=== PATIENT | male | born 1960 | race Caucasian/White ===

== ENCOUNTER 2018-01-21 06:33 | Observation (INO) | payer OTHER ==
[2018-01-21] MEDS ORDERED: Aspirin 81 MG Tab.Chew PO ONE (07:01)
--- NOTE | 2018-01-21 07:07 | EDM.PDOC ---
<Mykel Stuart - Last Filed: 01/21/18 06:59> ED HPI GENERAL MEDICAL PROBLEM - General Chief Complaint: Chest Pain Stated Complaint: CHEST PAIN Time Seen by Provider: 01/21/18 06:39 - History of Present Illness INITIAL COMMENTS - FREE TEXT/NARRATIVE: 57-year-old male presents emergency room with chest pain. This pain started 2-3 days ago. Pain seems to be left-sided and substernal he does not have associated radiating pain into his jaw or arm or elsewhere. The pain is not associated with any shortness of breath nausea vomiting or back pain. The patient has a significant past history of coronary artery disease he had stent placement he says of 3 vessels in 2010. The patient is currently taking some for blood pressure he believes is on Plavix and possibly some for his lipids. The patient is currently working in the [employer] and can't be certain that the activities make the pain worse however he has an area in his left chest is tender to the touch according to the patient. Chest Pain Score (Numeric/FACES): 7 - Related Data Allergies Allergy/AdvReac Type Severity Reaction Status Date / Time No Known Allergies Allergy Verified 01/21/18 06:44 Home Meds: Home Meds Aspirin [Halfprin] 81 mg PO DAILY 01/21/18 [History] Blood Pressure Meds. 01/21/18 [History] Blood Thinner. 01/21/18 [History] Past Medical History Cardiovascular History: Reports: High Cholesterol, Hypertension, NH - Past Surgical History Cardiovascular Surgical History: Reports: Coronary Artery Stent Musculoskeletal Surgical History: Reports: Other (See Below) Other Musculoskeletal Surgeries/Procedures:: finger amputation ED ROS GENERAL - Review of Systems Review Of Systems: See Below Constitutional: Reports: No Symptoms HEENT: Reports: No Symptoms Respiratory: Reports: No Symptoms Cardiovascular: Reports: Chest Pain. Denies: Dyspnea on Exertion, Edema, Palpitations Endocrine: Reports: No Symptoms GI/Abdominal: Reports: No Symptoms : Reports: No Symptoms Musculoskeletal: Reports: No Symptoms Skin: Reports: No Symptoms Neurological: Reports: No Symptoms Psychiatric: Reports: No Symptoms Hematologic/Lymphatic: Reports: No Symptoms Immunologic: Reports: No Symptoms ED EXAM, GENERAL - Physical Exam Exam: See Below Exam Limited By: No Limitations General Appearance: Alert, No Apparent Distress, Other (Patient states his pain is it an 8 but he seems to be doing pretty well) Eye Exam: Bilateral Eye: Normal Inspection Nose: Normal Inspection, Normal Mucosa, No Blood Throat/Mouth: Normal Inspection, Normal Gums, Normal Oropharynx, Normal Voice, No Airway Compromise Head: Atraumatic, Normocephalic Neck: Normal Inspection, Supple, Non-Tender, Full Range of Motion. No: Lymphadenopathy (L), Lymphadenopathy (R) Respiratory/Chest: No Respiratory Distress, Lungs Clear, Normal Breath Sounds, Other (He has some palpatory chest wall discomfort just the left side of the sternum. The patient believes this is similar to the pain he's been having but is not completely certain). No: Chest Non-Tender Cardiovascular: Normal Peripheral Pulses, Regular Rate, Rhythm, No Edema GI/Abdominal: Normal Bowel Sounds, Soft, Non-Tender Back Exam: Normal Inspection. No: CVA Tenderness (L), CVA Tenderness (R) Extremities: Normal Inspection, No Pedal Edema Neurological: Alert, Oriented, Normal Cognition EKG INTERPRETATION EKG Date: 01/21/18 Rhythm: NSR Pegram: Normal P-Wave: Present ST-T: Normal QT: Normal Comparison: NA - No Prior EKG EKG Interpretation Comments: Abnormal Course - Vital Signs Last Recorded V/S: Last Vital Signs Temp 36.9 C 01/21/18 06:41 Pulse 65 01/21/18 06:41 Resp 18 01/21/18 06:41 BP 129/82 01/21/18 07:23 Pulse Ox 99 01/21/18 06:41 - Orders/Labs/Meds Orders: Active Orders 24 hr Category Date Time Status EKG Documentation Completion [RC] ASDIRECTED Care 01/21/18 06:50 Active Chest 1V Frontal [CR] Stat Exams 01/21/18 06:49 Taken EKG 12 Lead [EK] Stat Ther 01/21/18 06:49 Ordered Labs: Laboratory Tests 01/21/18 01/21/18 01/21/18 Range/Units 07:05 07:05 07:05 WBC 5.93 (4.23-9.07) K/mm3 RBC 4.80 (4.63-6.08) M/mm3 Hgb 14.7 (13.7-17.5) gm/L Hct 43.2 (40.1-51.0) % MCV 90.0 (79.0-92.2) fl MCH 30.6 (25.7-32.2) pg MCHC 34.0 (32.2-35.5) g/dl RDW Std Deviation 45.8 H (35.1-43.9) fL Plt Count 322 (163-337) K/mm3 MPV 9.9 (9.4-12.3) fl Neutrophils % (Manual) 64 H (40-60) % Band Neutrophils % 0 (0-10) % Lymphocytes % (Manual) 33 (20-40) % Monocytes % (Manual) 1 L (2-10) % Eosinophils % (Manual) 1 (0.8-7.0) % Basophils % (Manual) 1 (0.2-1.2) Platelet Estimate Adequate RBC Morph Comment Normal PT 10.8 (8.0-13.0) SECONDS INR 1.01 APTT 30 (22-36) SECONDS Sodium 138 (136-145) mEq/L Potassium 3.7 (3.5-5.1) mEq/L Chloride 106 (98-107) mEq/L Carbon Dioxide 24 (21-32) mEq/L Anion Gap 11.7 (5-15) BUN 19 H (7-18) mg/dL Creatinine 0.8 (0.7-1.3) mg/dL Est Cr Clr Drug Dosing 113.75 mL/min Estimated GFR (MDRD) > 60 (>60) mL/min BUN/Creatinine Ratio 23.8 H (14-18) Glucose 143 H (74-106) mg/dL Calcium 8.9 (8.5-10.1) mg/dL Total Bilirubin 0.4 (0.2-1.0) mg/dL AST 26 (15-37) U/L ALT 41 (16-63) U/L Alkaline Phosphatase 112 (46-116) U/L Troponin I < 0.017 (0.00-0.056) ng/mL Total Protein 6.3 L (6.4-8.2) g/dl Albumin 3.6 (3.4-5.0) g/dl Globulin 2.7 gm/dL Albumin/Globulin Ratio 1.3 (1-2) Meds: Medications Discontinued Medications Generic Name Dose Route Start Last Admin Trade Name Freq PRN Reason Stop Dose Admin Aspirin 324 mg 01/21/18 07:01 01/21/18 07:14 Aspirin PO 01/21/18 07:02 324 mg ONETIME ONE Administration Nitroglycerin 0.4 mg 01/21/18 07:01 01/21/18 07:23 Nitrostat SL 0.4 mg Q5M PRN Administration Chest Pain - Re-Assessments/Exams Free Text/Narrative Re-Assessment/Exam: 01/21/18 07:17 Change of shift further evaluation and disposition per Dr. Cid Departure - Departure Disposition: Refer to Observation Clinical Impression: Angina pectoris, Hyperglycemia <Bhupinder Cid - Last Filed: 01/21/18 08:57> Course - Re-Assessments/Exams Free Text/Narrative Re-Assessment/Exam: 01/21/18 07:[address] Stuart. Notified by Sosa GÓMEZ that the nitroglycerin is helping with the patient's chest pain. 01/21/18 07:51 Portable chest radiograph appears to be grossly normal. Cardiac silhouette is within normal limits. No pulmonary vascular congestion. No pleural effusions. No focal infiltrate. No pneumothorax. Formal read per the Radiologist pending. 01/21/18 08:40 Test results discussed with the patient. Today's workup is unremarkable (with the exception of a blood glucose elevated 143). I discussed his current chest pain. He tells me that it is very similar to what he experienced in October 2011, when he suffered a NH. The patient tells me that he restarted smoking about 3 months ago, one pack per day, and that he also had worse chest pain when he smoked. 01/21/18 08:[address] Wells, [employer] Received at [facility], at 08:42. She does not feel that the patient needs to be transferred. She is recommending that we admit the patient to the hospital to follow troponins. She recommends we start the patient on Imdur 30 mg daily, and allow the patient to continue nitroglycerin on an as-needed basis. He should continue his aspirin. He should be referred to Cardiology as an outpatient, at which time he should bring his medication bottles so that the names and doses of his current medications can be known. 01/21/18 08:[address] Trotter at 08:52. He accepts the patient for placement into observation. Departure - Departure Time of Disposition: 08:54 Condition: Fair
[2018-01-21] MEDS: Nitroglycerin 0.4 MG Tab.SL SL PRN ×5 (07:13→18:16)
--- NOTE | 2018-01-21 08:48 | CR ---
Chest: Portable view of the chest was obtained. Comparison: No prior study. Heart size is normal. Tortuous thoracic aorta is seen. Lungs are clear. Bony structures are grossly intact. Impression: 1. Nothing acute is seen on portable chest x-ray. Diagnostic code #1
--- NOTE | 2018-01-21 09:29 | PCM.HP ---
H&P History of Present Illness - General Date of Service: 01/21/18 Admit Problem/Dx: Chest Pain Source of Information: Patient, Provider, RN, RN Notes Reviewed History Limitations: Reports: No Limitations - History of Present Illness Initial Comments - Free Text/Narative: Jony Espinoza is a 57 yo male who presents to our ED today (01/21/18) with chest pain that started 2-3 days ago. hHrd. He's currently taking ASA, Lipitor , and carvedilol. He is currently in the area working on [employer] and is not certain if the activity makes the pain worse or better. Reports his left chest is tender to touch. He reports he normally resides in [place] and is up here for work. Patient reports the pain is similar to his last heart attack in October 2011. She was reportedly a heavy smoker and stopped after his last heart attack. He resumed smoking about 3 days ago, 1/2 pack a day. He reports his chest pain is worse when he smokes. In the ED temp was 36.9C. Pulse 65. Respirations 18. BP 129/82. Pulse ox 99 %. 12-lead EKG was obtained shows a sinus rhythm with no ST changes. A first degree heart block is noted. observe obtained: W she is normal at 5.93. Hemoglobin 14.7. Hematocrit 43.2. He is normocytic. Platelets are normal at 322,000. Neutrophils are elevated at 64%. There is no bandemia. PT is 10.8. INR 1.01. APTT is 30. Sodium is 138. Potassium 3.7. Chloride 106. Comvax at 24. Anion gap 11.7. BUN is high at 19. Creatinine 0.8. EGFR greater than 60. Glucose high at 143. Calcium 8.9. Total bilirubin 0.4. Liver enzymes looked good with AST at 26, ALT of 41, alkaline phosphatase at 112. Troponin is negative at less than 0.017. Protein is slightly low at 6.3. Albumin 3.6. He is given 324 mg of aspirin and 0.4 mg sublingual nitroglycerin. nothing acute was appreciated on portable chest x-ray. Dr. Wells, superintendent service was stays in [place] was contacted at [phone]. She reports that the patient does not need to be transported to [place] and feels he should be started on Imdur 30 mg daily and continue nitroglycerin as needed. He should also continue his aspirin. He can be referred to cardiology as outpatient. She also recommends admission to the hospital for serial troponins. He carries a history of: HLD, HTN, CAD with stent placed in October 2011. He is a current half pack a day smoker. He subsequently is admitted to the medical floor under observation with telemetry. He is a full code. He does not have a PCP locally. Chest Pain Score (Numeric/FACES): 7 - Related Data Allergies/Adverse Reactions: Allergies Allergy/AdvReac Type Severity Reaction Status Date / Time No Known Allergies Allergy Verified 01/21/18 06:44 Home Medications: Home Meds Aspirin [Halfprin] 81 mg PO DAILY 01/21/18 [History] Carvedilol 6.25 mg PO BID 01/21/18 [History] atorvaSTATin [Lipitor] 80 mg PO DAILY 01/21/18 [History] Past Medical History Cardiovascular History: Reports: High Cholesterol, Hypertension, OR - Past Surgical History Cardiovascular Surgical History: Reports: Coronary Artery Stent Musculoskeletal Surgical History: Reports: Other (See Below) Other Musculoskeletal Surgeries/Procedures:: finger amputation Social & Family History - Tobacco Use Smoking Status *Q: Current Every Day Smoker Years of Tobacco use: 40 Packs/Tins Daily: 1 - Caffeine Use Caffeine Use: Reports: Coffee - Recreational Drug Use Recreational Drug Use: No H&P Review of Systems - Review of Systems: Review Of Systems: See Below General: Reports: No Symptoms. Denies: Fever, Chills, Malaise, Weakness, Fatigue HEENT: Reports: No Symptoms. Denies: Glasses, Sinus Congestion, Sore Throat Pulmonary: Reports: No Symptoms. Denies: Shortness of Breath, Wheezing, Cough, Sputum Cardiovascular: Reports: Chest Pain, Blood Pressure Problem. Denies: Palpitations, Dyspnea on Exertion, Edema, Lightheadedness, Syncope, Claudication Gastrointestinal: Reports: No Symptoms. Denies: Abdominal Pain, Constipation, Diarrhea, Decreased Appetite, Hematemesis, Hematochezia, Melena, Nausea, Vomiting Genitourinary: Reports: No Symptoms. Denies: Dysuria, Frequency, Burning, Pain , Urgency Musculoskeletal: Reports: No Symptoms Skin: Reports: No Symptoms Psychiatric: Reports: No Symptoms Neurological: Reports: No Symptoms Hematologic/Lymphatic: Reports: No Symptoms Immunologic: Reports: No Symptoms Exam - Exam Exam: See Below - Vital Signs Vital Signs: Last Vital Signs Temp 98.5 F 01/21/18 06:41 Pulse 65 01/21/18 06:41 Resp 18 01/21/18 06:41 BP 129/82 01/21/18 07:23 Pulse Ox 99 01/21/18 06:41 Weight: 240 lb - Exam Quality Assessment: DVT Prophylaxis General: Alert, Oriented, Cooperative. No: Mild Distress HEENT: PERRLA, Hearing Intact, Mucosa Moist & [place], Nares Patent, Normal Nasal Septum, Posterior Pharynx Clear, Conjunctiva Clear, EOMI, EACs Clear, TMs Clear Neck: Supple, Trachea Midline. No: JVD, Thyromegaly Lungs: Clear to Auscultation, Normal Respiratory Effort Cardiovascular: Regular Rate, Regular Rhythm, Bradycardia GI/Abdominal Exam: Normal Bowel Sounds, Soft, Non-Tender, No Organomegaly, No Distention, No Abnormal Bruit, No Mass, Pelvis Stable (Male) Exam: Deferred Rectal (Males) Exam: Deferred Back Exam: Normal Inspection, Full Range of Motion Extremities: Normal Inspection, Normal Range of Motion, Non-Tender, No Pedal Edema, Normal Capillary Refill Peripheral Pulses: 2+: Radial (L), Radial (R), Posterior Tibial (L), Posterior Tibial (R), Dorsalis Pedis (L), Dorsalis Pedis (R) Skin: Warm, Dry, Intact Neurological: Cranial Nerves Intact (grossly ) Neuro Extensive - Mental Status: Alert, Oriented x3, Normal Mood/Affect, Normal Cognition, Memory Intact Psychiatric: Alert, Normal Affect, Normal Mood - Patient Data Lab Results Last 24 hrs: Laboratory Results - last 24 hr 01/21/18 01/21/18 01/21/18 Range/Units 07:05 07:05 07:05 WBC 5.93 (4.23-9.07) K/mm3 RBC 4.80 (4.63-6.08) M/mm3 Hgb 14.7 (13.7-17.5) gm/L Hct 43.2 (40.1-51.0) % MCV 90.0 (79.0-92.2) fl MCH 30.6 (25.7-32.2) pg MCHC 34.0 (32.2-35.5) g/dl RDW Std Deviation 45.8 H (35.1-43.9) fL Plt Count 322 (163-337) K/mm3 MPV 9.9 (9.4-12.3) fl Neutrophils % (Manual) 64 H (40-60) % Band Neutrophils % 0 (0-10) % Lymphocytes % (Manual) 33 (20-40) % Monocytes % (Manual) 1 L (2-10) % Eosinophils % (Manual) 1 (0.8-7.0) % Basophils % (Manual) 1 (0.2-1.2) Platelet Estimate Adequate RBC Morph Comment Normal PT 10.8 (8.0-13.0) SECONDS INR 1.01 APTT 30 (22-36) SECONDS Sodium 138 (136-145) mEq/L Potassium 3.7 (3.5-5.1) mEq/L Chloride 106 (98-107) mEq/L Carbon Dioxide 24 (21-32) mEq/L Anion Gap 11.7 (5-15) BUN 19 H (7-18) mg/dL Creatinine 0.8 (0.7-1.3) mg/dL Est Cr Clr Drug Dosing 113.75 mL/min Estimated GFR (MDRD) > 60 (>60) mL/min BUN/Creatinine Ratio 23.8 H (14-18) Glucose 143 H (74-106) mg/dL Calcium 8.9 (8.5-10.1) mg/dL Total Bilirubin 0.4 (0.2-1.0) mg/dL AST 26 (15-37) U/L ALT 41 (16-63) U/L Alkaline Phosphatase 112 (46-116) U/L Troponin I < 0.017 (0.00-0.056) ng/mL Total Protein 6.3 L (6.4-8.2) g/dl Albumin 3.6 (3.4-5.0) g/dl Globulin 2.7 gm/dL Albumin/Globulin Ratio 1.3 (1-2) Result Diagrams: 01/21/18 07:05 01/21/18 07:05 *Q Meaningful Use (ADM) - VTE *Q VTE Criteria *Q: - Stroke *Q Stroke Criteria *Q: - AMI *Q AMI Criteria *Q: - Problem List (1) Angina pectoris SNOMED Code(s): 337874446 ICD Code: I20.9 - ANGINA PECTORIS, UNSPECIFIED Status: Acute Priority: High Current Visit: Yes (2) HLD (hyperlipidemia) SNOMED Code(s): 47414268 ICD Code: E78.5 - HYPERLIPIDEMIA, UNSPECIFIED Status: Chronic Priority: Low Current Visit: No Qualifiers: Hyperlipidemia type: unspecified Qualified Code(s): E78.5 - Hyperlipidemia , unspecified (3) HTN (hypertension) SNOMED Code(s): 49330702 ICD Code: I10 - ESSENTIAL (PRIMARY) HYPERTENSION Status: Chronic Priority : Low Current Visit: No Qualifiers: Hypertension type: unspecified Qualified Code(s): I10 - Essential (primary ) hypertension (4) CAD (coronary artery disease) SNOMED Code(s): 03879156 ICD Code: I25.10 - ATHSCL HEART DISEASE OF [place] CORONARY ARTERY W/O ANG PCTRS Status: Chronic Priority: High Current Visit: Yes Qualifiers: Coronary Disease-Associated Artery/Lesion type: [place] artery [place] vs. transplanted heart: [place] heart Associated angina: angina presence unspecified Qualified Code(s): I25.10 - Atherosclerotic heart disease of [place] coronary artery without angina pectoris (5) Tobacco use disorder SNOMED Code(s): 345682474 ICD Code: F17.200 - NICOTINE DEPENDENCE, UNSPECIFIED, UNCOMPLICATED Status : Chronic Priority: Medium Current Visit: Yes Problem List Initiated/Reviewed/Updated: Yes Orders Last 24hrs: Active Orders 24 hr Category Date Time Status EKG Documentation Completion [RC] ASDIRECTED Care 01/21/18 06:50 Active EKG 12 Lead [EK] Stat Ther 01/21/18 06:49 Ordered Assessment/Plan Comment:: I/P: Acute: Chest pain -Denies SOB, neck or arm pain, arm numbness, hand tingling, back pain, diaphoresis, nausea, vomiting -Risk Factors: HLD, HTN, hx/o CAD with stent placement in October 2011, daily smoker -Constant and dull substernal and slightly to left side pain -"Fells like it did the last time I had my heart attack" -Started 2-3 days ago -12-lead in ED- sinus rhythm, 1st degree HB, No ST changes -Troponin <0.017 -ASA, SL nitro given in ED -Stress test in AM -NPO after midnight -Stop nitro at midnight -No caffeine -No metoprolol/BB, hold meds until after test -Repeat Troponins <0.017 -CKMB 5.4 -Telemetry Chronic: HLD - home Lipitor after stress test HTN - Carvedilol - hold till after stress test CAD with stent placed in October 2011 Plan: Admit to medical floor observation with telemetry CM for discharge planning Pt. is ambulatory so no Pt/OT now Routine AM labs Other orders as indicated above Home meds as ordered DVT prophylaxis: SCDs and ambulate Code status: Full code; PCP: none in area.
[2018-01-21] MEDS ORDERED: LORazepam 2 MG/ML MDV IV PRN (09:38)
[2018-01-21] MEDS ORDERED: Temazepam 15 MG Cap PO PRN (09:38)
[2018-01-21] MEDS ORDERED: Acetaminophen 325 MG Tab PO PRN (09:38)
[2018-01-21] MEDS ORDERED: Promethazine 12.5 MG in Sodium Chloride 0.9% 50 ML IV PRN (09:38)
[2018-01-21] MEDS ORDERED: Ondansetron 4 MG/2 ML SDV IV PRN (09:38)
[2018-01-21] MEDS ORDERED: Acetaminophen/HYDROcodone 325-5 MG Tab PO PRN (09:38)
[2018-01-21] MEDS ORDERED: Bisacodyl 5 MG Tab PO PRN (09:38)
[2018-01-21] MEDS ORDERED: Albuterol/Ipratropium 3.0-0.5 MG/3 ML Neb Soln NEB PRN (09:38)
[2018-01-21] MEDS ORDERED: Polyethylene Glycol 3350 Powder 17 GM Packet PO PRN (09:38)
[2018-01-21] MEDS ORDERED: Docusate Sodium 100 MG Cap PO PRN (09:38)
[2018-01-21] MEDS ORDERED: Metoprolol Tartrate 5 MG/5 ML SDV IVPUSH PRN (09:44)
[2018-01-21] MEDS ORDERED: LORazepam 2 MG/ML MDV IVPUSH PRN (09:44)
[2018-01-21] MEDS ORDERED: hydrALAZINE 20 MG/ML SDV IVPUSH PRN (09:44)
[2018-01-21] MEDS ORDERED: Morphine 2 MG/ML Syringe ONE (09:53)
[2018-01-21] MEDS: Morphine 2 MG/ML Syringe IVPUSH PRN ×3 (09:53→21:44)
[2018-01-21] MEDS ORDERED: Benzocaine/Cetylpyridinium/Menthol Lozenge MUCMEM PRN (15:46)
[2018-01-21] MEDS ORDERED: Pneumococcal Polyvalent-23 Vaccine 0.5 ML SDV IM ONE (18:13)
[2018-01-21] MEDS ORDERED: FLU Vacc QS 2017-18 (6mos UP)/PF 60 MCG/0.5 ML Syringe IM ONE (18:30)
[2018-01-22] MEDS: Morphine 2 MG/ML Syringe IVPUSH PRN (04:37)
[2018-01-22] MEDS ORDERED: Magnesium Oxide 400 MG Tab PO ONE (09:00)
[2018-01-22] MEDS ORDERED: Aspirin 81 MG Tab.EC PO SCH ×2 (09:00)
[2018-01-22] MEDS ORDERED: Aspirin 81 MG Tab.Chew PO SCH (09:00)
--- NOTE | 2018-01-22 13:18 | NM ---
Cardiolite cardiac scan I have data stating the patient was stressed utilizing treadmill protocol. Patient reached 142 beats per minute which is above the patient's 85% maximum predicted heart rate of 138 beats per minute. Stress dose of technetium 99m Cardiolite was 10.1 mCi. Rest dose was 29.9 mCi. SPECT imaging was obtained in 3 planes for both portions of the study. Study was also gated. Low-dose chest CT performed to allow for attenuation correction. Comparison: No prior cardiac imaging Findings: Activity is fairly homogeneous between rest and stress study. No fixed or reversible type defects are seen. Ejection fraction is 53%. Wall thickening and wall motion are within normal limits. Impression: 1. No abnormality is appreciated on Cardiolite portion of cardiac stress test. Diagnostic code #1
--- NOTE | 2018-01-22 13:39 | PCM.DCSUM1 ---
Discharge Summary - Hospital Course HPI Initial Comments: Jony Espinoza is a 57 yo male who presents to our ED today (01/21/18) with chest pain that started 2-3 days ago. hHrd. He's currently taking ASA, Lipitor , and carvedilol. He is currently in the area working on oil rigs and is not certain if the activity makes the pain worse or better. Reports his left chest is tender to touch. He reports he normally resides in [place] and is up here for work. Patient reports the pain is similar to his last heart attack in October 2011. She was reportedly a heavy smoker and stopped after his last heart attack. He resumed smoking about 3 days ago, 1/2 pack a day. He reports his chest pain is worse when he smokes. In the ED temp was 36.9C. Pulse 65. Respirations 18. BP 129/82. Pulse ox 99 %. 12-lead EKG was obtained shows a sinus rhythm with no ST changes. A first degree heart block is noted. observe obtained: W she is normal at 5.93. Hemoglobin 14.7. Hematocrit 43.2. He is normocytic. Platelets are normal at 322,000. Neutrophils are elevated at 64%. There is no bandemia. PT is 10.8. INR 1.01. APTT is 30. Sodium is 138. Potassium 3.7. Chloride 106. Comvax at 24. Anion gap 11.7. BUN is high at 19. Creatinine 0.8. EGFR greater than 60. Glucose high at 143. Calcium 8.9. Total bilirubin 0.4. Liver enzymes looked good with AST at 26, ALT of 41, alkaline phosphatase at 112. Troponin is negative at less than 0.017. Protein is slightly low at 6.3. Albumin 3.6. He is given 324 mg of aspirin and 0.4 mg sublingual nitroglycerin. nothing acute was appreciated on portable chest x-ray. Dr. Wells, cash sales audit clerk was stays in [place] was contacted at [phone]. She reports that the patient does not need to be transported to [place] and feels he should be started on Imdur 30 mg daily and continue nitroglycerin as needed. He should also continue his aspirin. He can be referred to cardiology as outpatient. She also recommends admission to the hospital for serial troponins. He carries a history of: HLD, HTN, CAD with stent placed in October 2011. He is a current half pack a day smoker. He subsequently is admitted to the medical floor under observation with telemetry. He is a full code. He does not have a PCP locally. - Discharge Data Discharge Date: 01/22/18 (Admit date: 01/21/18) Discharge Disposition: Home, Self-Care 01 Condition: Good - Discharge Diagnosis/Problem(s) (1) Angina pectoris SNOMED Code(s): 507779992 ICD Code: I20.9 - ANGINA PECTORIS, UNSPECIFIED Status: Resolved Priority : High Current Visit: Yes (2) HLD (hyperlipidemia) SNOMED Code(s): 68963199 ICD Code: E78.5 - HYPERLIPIDEMIA, UNSPECIFIED Status: Chronic Priority: Low Current Visit: No Qualifiers: Hyperlipidemia type: unspecified Qualified Code(s): E78.5 - Hyperlipidemia , unspecified (3) HTN (hypertension) SNOMED Code(s): 50087738 ICD Code: I10 - ESSENTIAL (PRIMARY) HYPERTENSION Status: Chronic Priority : Low Current Visit: No Qualifiers: Hypertension type: unspecified Qualified Code(s): I10 - Essential (primary ) hypertension (4) CAD (coronary artery disease) SNOMED Code(s): 64933489 ICD Code: I25.10 - ATHSCL HEART DISEASE OF [place] CORONARY ARTERY W/O ANG PCTRS Status: Chronic Priority: High Current Visit: Yes Qualifiers: Coronary Disease-Associated Artery/Lesion type: [place] artery [place] vs. transplanted heart: [place] heart Associated angina: angina presence unspecified Qualified Code(s): I25.10 - Atherosclerotic heart disease of [place] coronary artery without angina pectoris (5) Tobacco use disorder SNOMED Code(s): 658366231 ICD Code: F17.200 - NICOTINE DEPENDENCE, UNSPECIFIED, UNCOMPLICATED Status : Chronic Priority: Medium Current Visit: Yes - Patient Summary/Data Labs Pending at D/C: None Recommended Follow-up Testing/Procedures: Follow-up with home cash sales audit clerk when you return. Follow-up with PCP when you return home Should establish with PCP locally as so much time is spent in the area. Hospital Course: I/P: Acute: Chest pain -Denies SOB, neck or arm pain, arm numbness, hand tingling, back pain, diaphoresis, nausea, vomiting -Risk Factors: HLD, HTN, hx/o CAD with stent placement in October 2011, daily smoker -Constant and dull substernal and slightly to left side pain -"Fells like it did the last time I had my heart attack" -Started 2-3 days ago -12-lead in ED- sinus rhythm, 1st degree HB, No ST changes -Troponins remain <0.017 -ASA, SL nitro given in ED -Stress test in AM - negative -NPO after midnight -Stop nitro at midnight -No caffeine -No metoprolol/BB, hold meds until after test -Repeat Troponins <0.017 -CKMB 5.4-->3.7 --> 2.8 -Telemetry -Lipid panel -Triglycerides 82 -Total cholesterol 105 -LDL 58 -HDL 38 -Discussed lifestyle changes to increase HDL Chronic: HLD - home Lipitor after stress test HTN - Carvedilol - hold till after stress test CAD with stent placed in October 2011 Plan: Admit to medical floor observation with telemetry CM for discharge planning Pt. is ambulatory so no Pt/OT now Routine AM labs Other orders as indicated above Home meds as ordered DVT prophylaxis: SCDs and ambulate Code status: Full code; PCP: none in area. Overall Jony did quite well. He received morphine and nitroglycerine yesterday for chest pain, to which he responded well. There is some question as to if this chest pain may be musculoskeletal vs. angina. Exercise stress test was negative and patient was exercised well above target heart rate by Dr. Trotter. No concerns were noted. Cardiolite portion of stress test was interpreted by Dr. Laguna as "No abnormality is appreciated on Cardiolite portion of cardiac stress test. He was prescribed nitro SL tablets and instructed to take 3 of them 5 minutes apart before calling 911 or seeking medical treatment. He should continue his home meds. - Patient Instructions Diet: Heart Healthy Diet Activity: As Tolerated Driving: Do Not Drive (today) Showering/Bathing: March Shower Notify Provider of: Fever, Drainage, Nausea and/or Vomiting (chest pain not relieved after 3 doses of nitro) - Discharge Plan Prescriptions/Med Rec: Nitroglycerin [IJP: Nitroglycerin] 0.4 mg SL Q5M PRN #25 tablet, sublingual PRN Reason: Chest Pain Home Medications: Home Meds Aspirin [Halfprin] 81 mg PO DAILY 01/21/18 [History] Carvedilol 6.25 mg PO BID 01/21/18 [History] atorvaSTATin [Lipitor] 80 mg PO DAILY 01/21/18 [History] Nitroglycerin [IJP: Nitroglycerin] 0.4 mg SL Q5M PRN #25 tablet, sublingual [Rx] - Discharge Summary/Plan Comment DC Time >30 min.: Yes (40 minutes ) - General Info Date of Service: 01/22/18 Admission Dx/Problem (Free Text: Chest Pain Subjective Update: In to see Jony. Stress test was negative. Lipid panel looked good with the exception of a slightly low HDL. Discussed lifestyle changes to increase this. Nursing discussed smoking cessation. He reports he is going to stop smoking and start some healthy habits. He will be discharged today. Functional Status: Reports: Pain Controlled, Tolerating Diet, Ambulating, Urinating. Denies: New Symptoms - Review of Systems General: Reports: No Symptoms HEENT: Reports: No Symptoms Pulmonary: Reports: No Symptoms. Denies: Shortness of Breath, Cough, Sputum Cardiovascular: Reports: No Symptoms. Denies: Chest Pain, Palpitations, Dyspnea on Exertion, Edema Gastrointestinal: Reports: No Symptoms. Denies: Abdominal Pain, Constipation, Diarrhea, Nausea, Vomiting Genitourinary: Reports: No Symptoms Musculoskeletal: Reports: No Symptoms Skin: Reports: No Symptoms Neurological: Reports: No Symptoms Psychiatric: Reports: No Symptoms - Patient Data Vitals - Most Recent: Last Vital Signs Temp 97.5 F 01/22/18 07:28 Pulse 51 L 01/22/18 07:28 Resp 18 01/22/18 07:28 BP 131/77 01/22/18 07:28 Pulse Ox 95 01/22/18 07:28 Weight - Most Recent: 236 lb 14.4 oz I&O - Last 24 hours: Intake & Output 01/21/18 01/22/18 01/22/18 22:59 06:59 14:59 Intake Total 640 800 120 Balance 640 800 120 Lab Results - Last 24 hrs: Laboratory Results - last 24 hr 01/21/18 01/21/18 01/22/18 Range/Units 14:28 21:05 05:13 WBC 4.69 (4.23-9.07) K/mm3 RBC 4.65 (4.63-6.08) M/mm3 Hgb 14.0 (13.7-17.5) gm/L Hct 42.4 (40.1-51.0) % MCV 91.2 (79.0-92.2) fl MCH 30.1 (25.7-32.2) pg MCHC 33.0 (32.2-35.5) g/dl RDW Std Deviation 47.2 H (35.1-43.9) fL Plt Count 289 (163-337) K/mm3 MPV 10.8 (9.4-12.3) fl Neut % (Auto) 60.9 (34.0-67.9) % Lymph % (Auto) 27.3 (21.8-53.1) % [place] % (Auto) 7.7 (5.3-12.2) % Eos % (Auto) 3.2 (0.8-7.0) Baso % (Auto) 0.9 (0.1-1.2) % Neut # (Auto) 2.86 (1.78-5.38) K/mm3 Lymph # (Auto) 1.28 L (1.32-3.57) K/mm3 [place] # (Auto) 0.36 (0.30-0.82) K/mm3 Eos # (Auto) 0.15 (0.04-0.54) K/mm3 Baso # (Auto) 0.04 (0.01-0.08) K/mm3 Sodium (136-145) mEq/L Potassium (3.5-5.1) mEq/L Chloride (98-107) mEq/L Carbon Dioxide (21-32) mEq/L Anion Gap (5-15) BUN (7-18) mg/dL Creatinine (0.7-1.3) mg/dL Est Cr Clr Drug Dosing mL/min Estimated GFR (MDRD) (>60) mL/min BUN/Creatinine Ratio (14-18) Glucose (74-106) mg/dL Calcium (8.5-10.1) mg/dL Magnesium (1.8-2.4) mg/dl CK-MB (CK-2) 5.4 H 3.7 H (0-3.6) ng/ml Troponin I < 0.017 < 0.017 (0.00-0.056) ng/mL Triglycerides (<150) mg/dL Cholesterol (<200) mg/dL LDL Cholesterol Direct (<100) mg/dL HDL Cholesterol (40-59) mg/dL 01/22/18 Range/Units 05:13 WBC (4.23-9.07) K/mm3 RBC (4.63-6.08) M/mm3 Hgb (13.7-17.5) gm/L Hct (40.1-51.0) % MCV (79.0-92.2) fl MCH (25.7-32.2) pg MCHC (32.2-35.5) g/dl RDW Std Deviation (35.1-43.9) fL Plt Count (163-337) K/mm3 MPV (9.4-12.3) fl Neut % (Auto) (34.0-67.9) % Lymph % (Auto) (21.8-53.1) % [place] % (Auto) (5.3-12.2) % Eos % (Auto) (0.8-7.0) Baso % (Auto) (0.1-1.2) % Neut # (Auto) (1.78-5.38) K/mm3 Lymph # (Auto) (1.32-3.57) K/mm3 [place] # (Auto) (0.30-0.82) K/mm3 Eos # (Auto) (0.04-0.54) K/mm3 Baso # (Auto) (0.01-0.08) K/mm3 Sodium 141 (136-145) mEq/L Potassium 4.1 (3.5-5.1) mEq/L Chloride 109 H (98-107) mEq/L Carbon Dioxide 23 (21-32) mEq/L Anion Gap 13.1 (5-15) BUN 17 (7-18) mg/dL Creatinine 0.7 (0.7-1.3) mg/dL Est Cr Clr Drug Dosing 130.00 mL/min Estimated GFR (MDRD) > 60 (>60) mL/min BUN/Creatinine Ratio 24.3 H (14-18) Glucose 109 H (74-106) mg/dL Calcium 8.5 (8.5-10.1) mg/dL Magnesium 1.6 L (1.8-2.4) mg/dl CK-MB (CK-2) 2.8 (0-3.6) ng/ml Troponin I < 0.017 (0.00-0.056) ng/mL Triglycerides 82 (<150) mg/dL Cholesterol 105 (<200) mg/dL LDL Cholesterol Direct 58 (<100) mg/dL HDL Cholesterol 38.0 L (40-59) mg/dL Med Orders - Current: Current Medications Acetaminophen (Tylenol) 650 mg PO Q4H PRN PRN Reason: Pain (Mild 1-3)/fever Hydrocodone Bitart/Acetaminophen (Cochrane 325-5 Mg) 1 tab PO Q4H PRN PRN Reason: Pain (moderate 4-6) Albuterol/Ipratropium (Duoneb 3.0-0.5 Mg/3 Ml) 3 ml NEB Q4H PRN PRN Reason: Shortness Of Breath/wheezing Aspirin (Halfprin) 81 mg PO DAILY MARIANO Last Admin: 01/22/18 09:39 Dose: 81 mg Benzocaine/Menthol (Cepacol Sore Throat) 1 lozenge MUCMEM TID PRN PRN Reason: Sore Throat Last Admin: 01/21/18 16:02 Dose: 1 lozenge Bisacodyl (Dulcolax) 5 mg PO DAILY PRN PRN Reason: Constipation Docusate Sodium (Colace) 100 mg PO BID PRN PRN Reason: Constipation Hydralazine HCl (Apresoline) 20 mg IVPUSH Q4H PRN PRN Reason: Hypertension Promethazine HCl 12.5 mg/ (Sodium Chloride) 50.5 mls @ 100 mls/hr IV Q6H PRN PRN Reason: Nausea/Vomiting Lorazepam (Ativan) 1 mg IV Q6H PRN PRN Reason: Anxiety Lorazepam (Ativan) 2 mg IVPUSH Q4H PRN PRN Reason: Seizures Metoprolol Tartrate (Lopressor) 5 mg IVPUSH Q4H PRN PRN Reason: Tachycardia Nitroglycerin (Nitrostat) 0.4 mg SL Q5M PRN PRN Reason: Chest Pain Last Admin: 01/21/18 18:16 Dose: 0.4 mg Ondansetron HCl (Zofran) 4 mg IV Q6H PRN PRN Reason: Nausea/Vomiting Polyethylene Glycol (Miralax) 17 gm PO DAILY PRN PRN Reason: Constipation Potassium Chloride (Pharmacy To Dose - Potassium Replacement) 1 dose .XX ASDIRECTED [facility] Senna/Docusate Sodium (Senna Plus) 1 tab PO BID PRN PRN Reason: Constipation Temazepam (Restoril) 15 mg PO BEDTIME PRN PRN Reason: Sleep Last Admin: 01/21/18 21:44 Dose: 15 mg Discontinued Medications Aspirin (Aspirin) 324 mg PO ONETIME ONE Stop: 01/21/18 07:02 Last Admin: 01/21/18 07:14 Dose: 324 mg Aspirin (Aspirin) 81 mg PO DAILY [facility] Aspirin (Halfprin) 162 mg PO DAILY [facility] Influenza Virus Vaccine (Pharmacy To Dose - Influenza Vaccine) 1 each IM ONETIME ONE Stop: 01/21/18 18:14 Influenza Virus Vaccine (Flulaval Quad [id number]) 60 mcg IM .ONCE ONE Stop: 01/21/18 18:31 Magnesium Oxide (Magnesium Oxide) 800 mg PO ONETIME ONE Stop: 01/22/18 09:01 Last Admin: 01/22/18 09:39 Dose: 800 mg Morphine Sulfate (Morphine) 2 mg IVPUSH Q2H PRN PRN Reason: Pain (severe 7-10) Stop: 01/22/18 09:40 Last Admin: 01/22/18 04:37 Dose: 2 mg Morphine Sulfate (Morphine) Confirm Administered Dose 2 mg .ROUTE .STK-MED ONE Stop: 01/21/18 09:54 Last Admin: 01/21/18 18:17 Dose: Not Given Nitroglycerin (Nitrostat) 0.4 mg SL Q5M PRN PRN Reason: Chest Pain Last Admin: 01/21/18 07:23 Dose: 0.4 mg Pneumococcal Polyvalent Vaccine (Pneumovax 23) 0.5 ml IM .ONCE ONE Stop: 01/21/18 18:14 - Exam Quality Assessment: Reports: DVT Prophylaxis General: Reports: Alert, Oriented, Cooperative, No Acute Distress HEENT: Reports: Pupils Equal, Pupils Reactive, EOMI, Mucous Membr. Moist/[place] Neck: Reports: Supple, Trachea Midline, No JVD, No Thyromegaly Lungs: Reports: Clear to Auscultation, Normal Respiratory Effort Cardiovascular: Reports: Regular Rate, Regular Rhythm, No Murmurs GI/Abdominal Exam: Normal Bowel Sounds, Soft, Non-Tender, No Organomegaly, No Distention, No Abnormal Bruit, No Mass, Pelvis Stable (Male) Exam: Deferred Rectal (Males) Exam: Deferred Back Exam: Reports: Normal Inspection, Full Range of Motion Extremities: Normal Inspection, Normal Range of Motion, Non-Tender, No Pedal Edema, Normal Capillary Refill Skin: Reports: Warm, Dry, Intact Neurological: Reports: No New Focal Deficit Psy/Mental Status: Reports: Alert, Normal Affect, Normal Mood *Q Meaningful Use (DIS) - VTE *Q VTE Criteria *Q: - Stroke *Q Stroke Criteria *Q: - AMI *Q AMI Criteria *Q:
--- NOTE | 2018-01-26 02:30 | STRESS ---
REQUESTING PHYSICIAN: DATE: 01/22/2018 ORDERING PHYSICIAN: Roger Trotter MD. INDICATION: Chest pain. PROCEDURE PERFORMED: Cardiolite treadmill exercise stress test. INTERPRETATION: Baseline EKG normal sinus rhythm. Q-waves in leads V1 to V3 and aVL. Protocol: Maximum heart rate of 154. Peak blood pressure of 188/65. Total exercise time of 7 minutes and 30 seconds. METs 8.2. Reason for stopping test, completion of Cardiolite testing. During testing or recovery process, the patient did not experience any chest pain or other anginal equivalent. There were no ischemic ST-segment changes noted on EKG, but occasional PVCs. IMPRESSION: 1. Electrographically negative Cardiolite treadmill exercise stress test. 2. Normal blood pressure response to stress. 3. Nuclear scan imaging will be done separately. MMODAL /[id number]
== END 2018-01-22 16:15 | disposition home or self-care (01) ==
LOC: JD.ED 06:33 → UNDOADMOB 09:33 → JD.MS 09:33
PROVIDERS: ADMIT Internal Medicine; ATTEND Internal Medicine
DX: I25.119 Atherosclerotic heart disease of native coronary artery with unspecified angina pectoris (principal); F17.210 Nicotine dependence, cigarettes, uncomplicated; I44.0 Atrioventricular block, first degree; E78.5 Hyperlipidemia, unspecified; I10 Essential (primary) hypertension; Z79.82 Long term (current) use of aspirin; Z95.5 Presence of coronary angioplasty implant and graft; Z79.899 Other long term (current) drug therapy
CPT/HCPCS: 36415; 71045; 78452; 80048; 80053; 80061; 82553; 83036; 83735; 84484; 85025; 85610; 85730; 93005; 93017; 99285; A9270; A9500; J2270; 96374; 96376; G0378